=== PATIENT | female | born 1980 | race Caucasian/White ===

== ENCOUNTER → 2020-07-07 15:52 | Outpatient (CLI) | payer OTHER, SELFPAY ==
--- NOTE | ~2020-07-07 | US_ITS ---
EXAMINATION: US thyroid EXAM DATE: 07/07/2020 16:09 INDICATION: Nontoxic goiter. TECHNIQUE: Multiple grayscale and Doppler images of the thyroid were obtained (by a technologist who performed the scan) and subsequently reviewed. Individual nodules and recommendations may be reporte d in accordance with TI-RADS system as designated by the 2017 ACR White Paper TI-RADS committee. The re is no prior study for comparison. FINDINGS: Right thyroid lobe measures 5.5 x 1.7 x 2.1 cm, the left measuring 5.9 x 1.3 x 2.0 cm. Relatively aramis ogeneous thyroid echogenicity. There is a 4 mm right thyroid lobe nodule, may be couple of other smal ler nodules which are not clinically significant. IMPRESSION: 1. Mild thyromegaly. Reviewed, dictated and finalized at location A. T [employer]ERSON IMPRESSION: 1. Mild thyromegaly.
== END ==
PROVIDERS: PCP Family Medicine; Visit Provider Family Medicine
DX: E04.9 Nontoxic goiter, unspecified (principal)
CPT/HCPCS: 76536

== ENCOUNTER 2021-08-09 01:23 | Day surgery (SDC) | payer OTHER, SELFPAY ==
[2021-07-31 09:45] VITALS: BMI 24.8
--- NOTE | 2021-07-31 09:53 | PC.NURSE ---
Report to the Outpatient Waiting Room, entrance under the green pavilion located off [facility], at time 0830 on date 08/09/21. OR Time: 1030. - You and your visitor will be asked a series of questions to screen for COVID 19 for your protection. - A mask is required within the hospital. One visitor will be allowed to accompany the patient into the hospital. Patients visitor will be instructed to remain with patient at all times or leave the building. We will allow the visitor to come back to the postoperative area when patient is ready. Preoperative COVID Testing Requirements: No COVID Test needed if: (proof is required; if not received patient will have Rapid Test prior to entry) - Patient has received COVID Vaccine at least 14 days prior to procedure date or - Patient has positive COVID test result within last 90 days of surgery date. COVID Test needed if above criteria is not met Patients may have clear liquids (water, carbonated beverages, clear teas, apple juice) until 3 hours prior to surgery with a maximum of 20 ounces. - No food from midnight until time of surgery Take the following medications with a SIP of water the morning of surgery: NONE Medications to discontinue per physician: N/A Date to take last dose: N/A Please no make-up, nail urdu, hairspray, perfume, deodorant, or body powder the day of surgery. No jewelry (including any body piercings) or valuables the day of surgery, leave them at home. Please take a shower or bath the night before, or the morning of, surgery with an antibacterial soap. Wear comfortable, loose fitting clothing. - Jewelry must be removed prior to entering the operating room. Rings and piercings that are not removed may be cut off. - The hospital will not accept responsibility for valuables. - Please leave all valuables, including medications, at home the day of surgery. If you are going home after surgery, a licensed bulk delivery driver must drive you home. - NO public transportation without another adult. - We recommend that an adult stay with you for 24 hours following discharge. - We also recommend that you do not drive, make important decision, drink alcoholic beverages, or take any drugs that were not prescribed by your health care provider for at least 24 hours after your discharge time. Follow any additional instructions given to you from your surgeon. Telephone instructions given to MAHESH GONZALEZ and asked if any additional questions and then verbalized understanding. Patient advised to call surgeon office or pre surgery nurse liaison [phone] if any additional questions.
[2021-08-09] VITALS (8 sets, daily range): BP systolic 109–121; BP diastolic 76–83; PULSE 57–70; RESP 16–19; TEMP 36.2–37.1; O2SAT 100; BMI 25.8
[2021-08-09] MEDS: LACTATED RINGERS 1,000 ML 30 ML IV CONT (08:57)
[2021-08-09] MEDS: KETOROLAC 15 MG/ML VIAL (*BKC) IV PUSH (08:57)
[2021-08-09] MEDS: ACETAMINOPHEN 500 MG TABLET 1000 MG PO (08:57)
--- NOTE | 2021-08-09 09:01 | P.PNAN_ITS ---
Anes - Initial Pre Proc Eval Procedure: Operation Date: 08/09/21 10:30 Proposed Procedures p Laparoscopic Bilateral Salpingectomy - Justin Urias MD s Endometrial Ablation - Justin Urias MD Date/Time: 08/09/21 09:01 Surgeon: Justin Urias MD Pre Op Diagnosis: Vol Sterilization Patient Data Age: 40 Gender: F Height: 1.63 m Weight: 68.3 kg Last Vital Signs Temp 37.1 C 08/09/21 08:46 Pulse 70 08/09/21 08:46 Resp 16 08/09/21 08:46 BP 109/77 08/09/21 08:46 Pulse Ox 100 08/09/21 08:46 Allergies Allergy/AdvReac Type Severity Reaction Status Date / Time No Known Allergies Allergy Verified 08/09/21 08:26 Home Medications Medication Instructions Recorded Confirmed Type sumatriptan succinate 100 mg PO PRN PRN 07/31/21 08/09/21 History Patient hx anesthesia problems: none Family hx anesthesia problems: none Results Review: All pre-operative results and documents have been reviewed as part of the pre-operative evaluation. FORMERLY [facility], [facility] Surgical History Surgical History (Updated 08/09/21 @ 09:01 by Supa Adams MD) H/O wisdom tooth extraction Social History Social History Smoking status: Never smoker Alcohol intake: current Drinks per week: 2 Substance use: never Substance use type: does not use Living arrangements: with family Spiritual care concerns: No Anes - Eval Final PreProcedure Day of Procedure 08/09/21 09:01 Patient weight: normal Heart: regular rate and rhythm Lungs: clear to auscultation Airway: Mallampati scale class II Neurological: alert and oriented Last oral intake: >/= 8 hours ASA classification: I Emergent: no Anesthetic plan: proceed Anesthesia type and monitoring: general ETT and standard monitoring Results Review: All pre-operative results and documents have been reviewed as part of the pre-operative evaluation. Informed Consent: The patient's anesthetic plan and its attendant risks and benefits were discussed with the patient/family/POA. Questions were solicited and answers provided to the satisfaction of the patient/family/POA.
--- NOTE | 2021-08-09 10:32 | WPDHPUPDATE1 ---
History and Physical Update Update Date/Time: 08/09/21 10:32 To perform endometrial ablation along with bilateral laparoscopic salpingectomy. History and Physical has been reviewed, including an updated exam of the patient. There are NO changes in the patient's condition. Risks, benefits, and alternatives have been discussed and questions answered. Patient agrees to proceed with procedure.
--- NOTE | 2021-08-09 11:41 | P.OP_ITS ---
Procedure Note - Detailed Date of Procedure 08/09/21 Pre-op Diagnosis Menorrhagia, female sterilization Post-op Diagnosis Same ( ovarian cysts) Procedure Performed Laparoscopic bilateral salpingectomy with endometrial ablation and hysteroscopy. Bilateral ovarian cystectomy Surgeon Justin Urias MD Anesthesia General Indications Menorrhagia, female sterilization, ovarian cysts Findings bilateral ovarian cysts of approximately 3.5 cm. Normal-appearing tubes and uterus. Normal vulva, vagina and cervix. Normal intrauterine cavity. Description of Procedure Patient was taken the operating room. She has prepped draped in the dorsal lithotomy position after induction of general anesthesia. A 5 mm abdominal incision was made in left upper quadrant of the abdomen with scalpel. A 5 mm trocars inserted the intra-abdominal cavity under direct visualization of the scope. Pneumoperitoneum was achieved. A 5 mm periumbilical incision was made using a scalpel on the abdominal scan. A 5 mm trocar was inserted the intra- abdominal cavity under visualization of the scope. A 5 mm incision made left lower quadrant of the abdomen. A 5 mm trocar was inserted the intra-abdominal cavity and direct visualization of the scope. Bilateral ovarian cystectomy was performed. This was performed with scissors and cautery and graspers. Cysts were transected and a portion of the cyst wall was removed. The capsules were removed as well. The cut surfaces were cauterized. The bilateral fallopian tubes were removed. The paratubal tissue in the area of the uterus was grasped with the LigaSure cautery and transected after being cauterized. The paratubal tissue from the ovary to the uterine cornu was cauterized and transected with LigaSure cautery. This was all done in a bilateral fashion. The tube was transected at the area of the uterine cornua and the tubes was removed through the 5 mm trocar site. The pneumoperitoneum was reduced. The trocars were removed. The skin was closed with subcuticular 4 Monocryl and covered with Dermabond. Our attention was then turned to the endometrial ablation portion of the procedure. A speculum was placed in the vagina. The cervix was grasped with a tenaculum. The cervix was dilated to approximately 8 mm with Salas dilators. The hysteroscope was inserted. And the below findings were noted. All of the intrauterine surfaces were curettaged with a medium-size curette and the specimens were collected. Measurements of the cervix were taken using the uterine sound and the hysteroscope. The intrauterine cavity measurements were entered into the handpiece. The device was inserted into the intrauterine cavity and the array was expanded. The balloon cuff was inflated. When an adequate seal was formed the safety and energy cycles were initiated and completed. The array was collapsed, the balloon was deflated. The insert was withdrawn. The hysteroscope was reinserted and a well desiccated intrauterine cavity was observed. The patient was taken recovery room stable condition. Sponge lap and needle counts were correct x2. She tolerated the procedure well. Estimated Blood Loss 30 Pathology Yes Complications No immediate complications Condition Stable Disposition PACU
[2021-08-09] MEDS: oxyCODONE HCL (*CRX) 5 MG TAB IR PO (13:04)
== END 2021-08-09 13:40 | disposition home or self-care (01) ==
PROVIDERS: PCP Family Medicine; Visit Provider Obstetrics & Gynecology
PROC: (CPT 49320; principal; 2021-08-09 10:30)
PROC: 0U5B8ZZ Destruction of Endometrium, Via Natural or Artificial Opening Endoscopic (ICD-10-PCS; CPT 58563; 2021-08-09 10:30)
DX: N92.0 Excessive and frequent menstruation with regular cycle (principal); Z30.2 Encounter for sterilization; N83.12 Corpus luteum cyst of left ovary; N83.01 Follicular cyst of right ovary; N83.8 Other noninflammatory disorders of ovary, fallopian tube and broad ligament
CPT/HCPCS: 58661; 58563; 58662; 88302; 88305; A9270; J1100; J1885; J2250; J2405; J2704; J2710; J3010; J7030; J7120